=== PATIENT | female | born 1975 | race Caucasian/White ===

== ENCOUNTER → 2018-03-10 12:45 | Outpatient (CLI) | payer OTHER, SELFPAY ==
--- NOTE | 2018-03-10 12:47 | DI.US.S_ITS ---
PROCEDURE: US PELVIC COMPLETE INDICATIONS: vague pelvic discomfort TECHNIQUE: Real-time scanning was performed of the pelvic organs, with image documentation. Additional endovaginal scanning was necessary due to incomplete visualization of the adnexal and endometrial structures by transabdominal scanning. COMPARISON: [facility], US, PELVIS SONO TRANSVAGINAL (PNL), 04/20/2009, 8:09. FINDINGS: Transabdominal scanning: Limited scanning through the kidneys shows no hydronephrosis. No pathologic free abdominal or pelvic fluid. Endovaginal scanning: Uterus: The uterus is normal in size and measures 9.2 x 4.4 x 5.7 cm. No focal myometrial lesions are identified. Endometrial echo stripe is a homogeneous appearance and measures up to 11 mm in maximal combined thickness. There is no fluid seen within the endometrium. Small nabothian cysts are evident within the region of the cervix. Ovaries: The right ovary measures 2.4 x 3.0 x 4.1 cm, which is measuring within the upper limits of normal for size. A heterogeneous cyst is identified involving the right ovary that measures up to 2.0 cm in diameter and demonstrates peripheral vascularity. The left ovary is normal in size and measures 2.0 x 1.8 x 2.3 cm. No focal left ovarian abnormality is evident. IMPRESSION: 1. Possible collapsing right ovarian cyst. 2. Unremarkable uterus and left ovary. Dictated by: Jj Segura M.D. on 03/10/2018 at 12:44 Approved by: Jj Segura M.D. on 03/10/2018 at 12:46
== END ==
PROVIDERS: Family Provider Obstetrics & Gynecology; Visit Provider Physician Assistant
DX: R10.2 Pelvic and perineal pain (principal); N83.291 Other ovarian cyst, right side; N88.8 Other specified noninflammatory disorders of cervix uteri
CPT/HCPCS: 76830; 76856

== ENCOUNTER → 2018-06-25 12:15 | Outpatient (CLI) | payer OTHER, SELFPAY ==
--- NOTE | 2018-06-25 12:18 | DI.RAD.S_ITS ---
PROCEDURE: XR CERVICAL SPINE 2V OR 3V INDICATIONS: neck pain, dizziness TECHNIQUE: 3 view(s) of the cervical spine were acquired. COMPARISON: None. FINDINGS: Bones: No fractures or dislocations to the T1 level. The lateral masses of C1 appear intact on the odontoid view. No suspicious bony lesions. Note is made of a mild degree of degenerative disc disease at C4-5 and a moderately severe degree of such degeneration at C5-6. Moderate C6-7 degenerative disc height reduction also is present, and in each of these levels there are small anterior and posterior projecting osteophytes most prominent at C5-6 and C6-7. Soft tissues: No prevertebral soft tissue swelling. IMPRESSION: Overall the degenerative disc disease along the mid and lower cervical spine is moderate in severity, without subluxation. MR scanning may be warranted to accurately assess for nerve root impingement and degree of spinal stenosis. Dictated by: Sherif Thapa M.D. on 06/25/2018 at 14:29 Approved by: Sherif Thapa M.D. on 06/25/2018 at 14:38
== END ==
PROVIDERS: Family Provider Obstetrics & Gynecology; PCP Family Medicine; Visit Provider Family Medicine
DX: M54.2 Cervicalgia (principal)
CPT/HCPCS: 72040

== ENCOUNTER → 2018-07-04 08:35 | Outpatient (CLI) | payer OTHER, SELFPAY ==
--- NOTE | 2018-07-04 08:37 | DI.MRI.S_ITS ---
PROCEDURE: MR CERVICAL SPINE WO CON INDICATIONS: neck pain, radiculopathy TECHNIQUE: Noncontrast sagittal T1 spin echo and T2 fast spin echo, sagittal STIR, foraminal oblique sagittal T2 fast spin echo, and axial gradient echo or T2 fast spin echo through the cervical spine. COMPARISON: None. FINDINGS: Image quality: Excellent. Alignment and Curvature: There is mild straightening of normal cervical lordosis. Bone Marrow: Marrow demonstrates normal overall signal. Spinal Cord: Visualized spinal cord has normal size and signal. No cerebellar tonsillar herniation. Paraspinous Soft Tissues: No paravertebral masses. Prevertebral soft tissues are normal in thickness. C2-C3: Mild central disc bulge is seen. No significant canal stenosis or neuroforaminal narrowing. C3-C4: Diffuse disc bulge and central disc herniation is seen with mild effacement of the thecal sac anteriorly. No significant neuroforaminal narrowing. C4-C5: Diffuse disc bulge and central disc herniation causing [id number] central canal stenosis, no significant neuroforaminal narrowing. C5-C6: The right base, slightly more right-sided disc herniation and anulus fibrosis tear causing moderate central canal stenosis and mild bilateral neuroforaminal narrowing. C6-C7: Mild broad-based disc bulge is seen with mild central canal stenosis, no significant neuroforaminal narrowing. C7-T1: Normal appearance. IMPRESSION: 1. Degenerative disc bulge swallow cervical spine with mild to moderate central canal stenosis most prominent at C5-6 level. Mild bilateral neuroforaminal narrowing is seen at C5-6 level. 2. No marrow edema. No compression fracture or spondylolisthesis. No abnormal cervical spinal cord signal. Dictated by: Bruce Li M.D. on 07/06/2018 at 9:08 Approved by: Bruce Li M.D. on 07/06/2018 at 9:13
== END ==
PROVIDERS: Family Provider Obstetrics & Gynecology; PCP Family Medicine; Visit Provider Family Medicine
DX: M50.11 Cervical disc disorder with radiculopathy, high cervical region (principal); M48.02 Spinal stenosis, cervical region
CPT/HCPCS: 72141

== ENCOUNTER → 2019-02-04 11:39 | Outpatient (CLI) | payer OTHER, SELFPAY ==
--- NOTE | 2019-02-04 11:41 | DI.RAD.S_ITS ---
PROCEDURE: XR FOOT LT MIN 3V INDICATIONS: foot trauma/ pain TECHNIQUE: 3 views of the foot were acquired. COMPARISON: None. FINDINGS: Bones: There is a minimally displaced oblique fracture of the third proximal phalangeal shaft. No suspicious bony lesions. Mild degenerative joint disease in multiple interphalangeal joints. Soft tissues: No tibiotalar joint effusion. Achilles tendon appears normal. IMPRESSION: Minimally displaced third proximal phalangeal shaft fracture. Dictated by: Amna Wolfe M.D. on 02/04/2019 at 16:04 Approved by: Amna Wolfe M.D. on 02/04/2019 at 16:06
== END ==
PROVIDERS: PCP Family Medicine; Visit Provider Hospitalist
DX: M19.072 Primary osteoarthritis, left ankle and foot (principal); S92.512A Displaced fracture of proximal phalanx of left lesser toe(s), initial encounter for closed fracture
CPT/HCPCS: 73630

== ENCOUNTER → 2019-02-22 07:37 | Outpatient (CLI) | payer OTHER, SELFPAY ==
[2019-02-22 08:33] LABS: Add Manual Diff / Slide Review NO; Basophils Absolute Auto 100 /uL (0-100); Basophils Percent Auto 1.6 % (0-2); Eosinophils Absolute Auto 100 /uL (0-450); Eosinophils Percent Auto 2.8 % (2-4); Hematocrit 38.9 % (36-46); Hemoglobin 13.5 g/dL (12.0-16.0); Lymphocytes Absolute Auto 1600 /uL (1100-4500); Lymphocytes Percent Auto 38.1 % (25-40); Mean Corpuscular HGB Conc 34.8 % (30-36); Mean Corpuscular Hemoglobin 32.7 PG (26-34); Monocytes Absolute Auto 300 /uL (0-900); Monocytes Percent Auto 7.5 % (3-14); Neutrophils Absolute Auto 2100 /uL (1500-7000); Platelet Count 289 X10^3/uL (150-400); Red Blood Cell Count 4.14 X10^6/uL (4.0-5.2); Red Cell Distribution Width 12.6 % (11.6-14.8); White Blood Cell Count 4.2 X10^3/uL (4.5-11.0)
[2019-02-22 09:06] LABS: Alanine Aminotransferase 25 IU/L (9-52); Albumin 4.3 g/dL (3.5-5.0); Albumin Globulin Ratio 1.4 (1.0-2.8); Alkaline Phosphatase 50 U/L (38-126); Aspartate Aminotransferase 35 IU/L (14-36); BUN Creatinine Ratio 16.7 (6-22); Bilirubin Total 0.5 mg/dL (0.2-1.3); Blood Urea Nitrogen 10 mg/dL (7-17); Calcium 9.4 mg/dL (8.4-10.2); Carbon Dioxide 24 mmol/L (22-32); Chloride 104 mmol/L (98-107); Cholesterol 155 mg/dL (140-199); Estimated Glomerular Filt Rate > 60.0 mL/min (>60); Glucose 89 mg/dL (70-100); HDL Cholesterol 52 mg/dL (40-60); HEMOLYSIS < 15 (0-50); LDL Cholesterol Calculated 88 mg/dL (<100); Sodium 138 mmol/L (137-145); Total Protein 7.3 g/dL (6.3-8.2); Triglycerides 75 mg/dL (35-150)
[2019-02-22 09:26] LABS: Free T3, Triiodothyronine Free 3.57 pg/mL (2.77-5.27); Free T4, Direct Thyroxine 1.28 ng/dL (0.78-2.19)
[2019-02-22 09:36] LABS: Ferritin 48.4 ng/mL (6.27-137)
[2019-02-22 09:40] LABS: Thyroid Stimulating Hormone 1.56 uIU/mL (0.47-4.68)
[2019-02-24 14:40] LABS: Thyroid Peroxidase Antibodies 1 IU/mL (< 9)
== END ==
PROVIDERS: Family Provider Family Medicine; PCP Family Medicine; Visit Provider Naturopath
DX: Z00.00 Encounter for general adult medical examination without abnormal findings (principal); E06.3 Autoimmune thyroiditis
CPT/HCPCS: 36415; 80053; 80061; 82728; 84439; 84443; 84481; 85025; 86376

== ENCOUNTER → 2019-07-29 12:26 | Outpatient (CLI) | payer OTHER, SELFPAY ==
--- NOTE | 2019-07-29 12:32 | DI.MG.S_ITS ---
BILATERAL DIGITAL SCREENING MAMMOGRAM 3D/2D WITH CAD: 07/29/2019 CLINICAL: Baseline exam. Routine screening. No prior exams were available for comparison. The tissue of both breasts is heterogeneously dense. This may lower the sensitivity of mammography. Current study was also evaluated with a Computer Aided Detection (CAD) system. No significant masses, calcifications, or other findings are seen in either breast. IMPRESSION: NEGATIVE There is no mammographic evidence of malignancy. A 1 year screening mammogram is recommended. This exam was interpreted at Station ID: [id number]. NOTE: For mammograms, a report in lay terms will be sent to the patient. Approximately 15% of breast malignancies will not be visualized mammographically. In the management of a palpable breast mass, a negative mammogram must not discourage biopsy of a clinically suspicious lesion. Electronically Signed By: Humble jimenes/racheal:07/29/2019 15:49:57 letter sent: Normal Exam ACR BI-RADS Category 1: Negative 3341F
== END ==
PROVIDERS: Family Provider Family Medicine; Referring Provider Naturopath; Visit Provider Naturopath
DX: Z12.31 Encounter for screening mammogram for malignant neoplasm of breast (principal)
CPT/HCPCS: 77063; 77067

== ENCOUNTER → 2020-12-01 09:59 | Outpatient (CLI) | payer OTHER, SELFPAY ==
[2020-12-01 10:18] LABS: Add Manual Diff / Slide Review NO; Basophils Absolute Auto 100 /uL (0-100); Basophils Percent Auto 1.6 % (0-2); Eosinophils Absolute Auto 100 /uL (0-450); Eosinophils Percent Auto 2.6 % (2-4); Hematocrit 38.6 % (36-46); Hemoglobin 13.1 g/dL (12.0-16.0); Lymphocytes Absolute Auto 1500 /uL (1100-4500); Lymphocytes Percent Auto 37.3 % (25-40); Mean Corpuscular HGB Conc 33.9 % (30-36); Mean Corpuscular Hemoglobin 32.1 PG (26-34); Mean Corpuscular Volume 94.8 fL (80-100); Monocytes Absolute Auto 400 /uL (0-900); Monocytes Percent Auto 10.2 % (3-14); Neutrophils Absolute Auto 2000 /uL (1500-7000); Neutrophils Percent Auto 48.3 % (50-75); Platelet Count 274 X10^3/uL (150-400); Red Blood Cell Count 4.07 X10^6/uL (4.0-5.2); Red Cell Distribution Width 13.8 % (11.6-14.8); White Blood Cell Count 4.1 X10^3/uL (4.5-11.0)
[2020-12-01 10:39] LABS: Alanine Aminotransferase 29 IU/L (<35); Albumin 4.2 g/dL (3.5-5.0); Albumin Globulin Ratio 1.4 (1.0-2.8); Alkaline Phosphatase 41 U/L (38-126); Aspartate Aminotransferase 33 IU/L (14-36); Bilirubin Total 0.3 mg/dL (0.2-1.3); Blood Urea Nitrogen 11 mg/dL (7-17); Calcium 9.3 mg/dL (8.4-10.2); Carbon Dioxide 25 mmol/L (22-32); Chloride 106 mmol/L (98-107); Cholesterol 143 mg/dL (140-199); Estimated Glomerular Filt Rate > 60.0 mL/min (>60); Globulin 2.9 g/dL (1.7-4.1); Glucose 105 mg/dL (70-100); HDL Cholesterol 55 mg/dL (40-60); HEMOLYSIS < 15 (0-50); LDL Cholesterol Calculated 80 mg/dL (<100); Potassium 4.4 mmol/L (3.4-5.1); Sodium 138 mmol/L (137-145); Total Protein 7.1 g/dL (6.3-8.2); Triglycerides 42 mg/dL (35-150)
[2020-12-01 11:40] LABS: HIV 1 & 2 Ab/Ag 4th Gen Combo NEGATIVE (NEGATIVE)
[2020-12-02 12:09] LABS: RPR Screen Non Reactive (Non Reactive)
== END ==
PROVIDERS: Family Provider Family Medicine; PCP Naturopath; Referring Provider Naturopath; Visit Provider Naturopath
DX: Z00.00 Encounter for general adult medical examination without abnormal findings (principal); Z11.4 Encounter for screening for human immunodeficiency virus [HIV]; Z11.3 Encounter for screening for infections with a predominantly sexual mode of transmission
CPT/HCPCS: 36415; 80053; 80061; 85025; 86592; 87389

== ENCOUNTER → 2020-12-12 14:23 | Outpatient (CLI) | payer OTHER, SELFPAY ==
--- NOTE | 2020-12-12 14:24 | DI.MG.S_ITS ---
BILATERAL DIGITAL SCREENING MAMMOGRAM 3D/2D WITH CAD: 12/12/2020 CLINICAL: Routine screening. Comparison is made to exam dated: 07/29/2019 [facility]. The tissue of both breasts is heterogeneously dense. This may lower the sensitivity of mammography. Current study was also evaluated with a Computer Aided Detection (CAD) system. No significant masses, calcifications, or other findings are seen in either breast. There has been no significant interval change. IMPRESSION: NEGATIVE There is no mammographic evidence of malignancy. A 1 year screening mammogram is recommended. This exam was interpreted at Station ID: [id number]. NOTE: For mammograms, a report in lay terms will be sent to the patient. Approximately 15% of breast malignancies will not be visualized mammographically. In the management of a palpable breast mass, a negative mammogram must not discourage biopsy of a clinically suspicious lesion. Electronically Signed By: Parminder tello/racheal:12/12/2020 16:05:24 letter sent: Normal Exam ACR BI-RADS Category 1: Negative 3341F
== END ==
PROVIDERS: Family Provider Family Medicine; PCP Naturopath; Referring Provider Naturopath; Visit Provider Naturopath
DX: Z12.31 Encounter for screening mammogram for malignant neoplasm of breast (principal)
CPT/HCPCS: 77063; 77067

== ENCOUNTER → 2021-08-24 12:09 | Outpatient (CLI) | payer OTHER, SELFPAY ==
[2021-08-24 13:10] LABS: Appearance Urine UA CLEAR; Bilirubin Urine UA NEGATIVE (NEGATIVE); Color Urine UA YELLOW; Glucose Urine UA NEGATIVE (Negative); Ketones Urine UA NEGATIVE (NEGATIVE); Leukocyte Esterase Urine UA NEGATIVE (NEGATIVE); Nitrite Urine UA NEGATIVE (Negative); Occult Blood Urine UA NEGATIVE (Negative); Protein Urine UA NEGATIVE (Negative); Specific Gravity Urine UA <=1.005 (1.000-1.035); Urobilinogen Urine UA 0.2 E.U./dL (0.2)
[2021-08-24 13:42] LABS: HIV 1 & 2 Ab/Ag 4th Gen Combo NEGATIVE (NEGATIVE)
[2021-08-24 13:43] LABS: Bacteria Urine Occasional (0-1); Culture Indicated Urine Cult Not Indicated; RBC Urine 0-1/HPF (0-5/HPF); WBC Urine 0-1/HPF (0-5/HPF); pH Urine UA 6.5 (4.5-8.0)
[2021-08-24 14:38] LABS: Urine N gonorrhoeae NOT DETECTED
[2021-08-24 14:58] LABS: Urine Chlamydia NOT DETECTED
[2021-08-25 04:08] LABS: RPR Screen Non Reactive (Non Reactive)
== END ==
PROVIDERS: Family Provider Family Medicine; PCP Naturopath; Referring Provider Family Medicine; Visit Provider Family Medicine
DX: Z70.9 Sex counseling, unspecified (principal); Z11.3 Encounter for screening for infections with a predominantly sexual mode of transmission; Z20.828 Contact with and (suspected) exposure to other viral communicable diseases; R30.0 Dysuria
CPT/HCPCS: 36415; 81001; 86592; 87389; 87491; 87591

== ENCOUNTER → 2021-12-21 07:31 | Outpatient (CLI) | payer OTHER, SELFPAY ==
--- NOTE | 2021-12-21 | DI.MG.S_ITS ---
BILATERAL DIGITAL SCREENING MAMMOGRAM 3D/2D WITH CAD: 12/21/2021 CLINICAL: Routine screening. Comparison is made to exams dated: 12/12/2020 mammogram and 07/29/2019 mammogram - [facility]. The tissue of both breasts is heterogeneously dense. This may lower the sensitivity of mammography. Current study was also evaluated with a Computer Aided Detection (CAD) system. No significant masses, calcifications, or other findings are seen in either breast. There has been no significant interval change. IMPRESSION: NEGATIVE There is no mammographic evidence of malignancy. A 1 year screening mammogram is recommended. This exam was interpreted at Station ID: [id number]. NOTE: For mammograms, a report in lay terms will be sent to the patient. Approximately 15% of breast malignancies will not be visualized mammographically. In the management of a palpable breast mass, a negative mammogram must not discourage biopsy of a clinically suspicious lesion. Electronically Signed By: Jackie guzman/racheal:12/21/2021 14:26:05 letter sent: Normal Exam ACR BI-RADS Category 1: Negative 3341F
[2021-12-21 08:25] LABS: Appearance Urine UA CLEAR; Bilirubin Urine UA NEGATIVE (NEGATIVE); Color Urine UA YELLOW; Glucose Urine UA NEGATIVE (Negative); Ketones Urine UA NEGATIVE (NEGATIVE); Leukocyte Esterase Urine UA NEGATIVE (NEGATIVE); Nitrite Urine UA NEGATIVE (Negative); Occult Blood Urine UA NEGATIVE (Negative); Protein Urine UA NEGATIVE (Negative); Urobilinogen Urine UA 0.2 E.U./dL (0.2)
[2021-12-21 09:20] LABS: Add Manual Diff / Slide Review NO; Basophils Absolute Auto 0 /uL (0-100); Basophils Percent Auto 1.1 % (0-2); Eosinophils Absolute Auto 100 /uL (0-450); Eosinophils Percent Auto 2.1 % (2-4); Hematocrit 38.4 % (36-46); Hemoglobin 13.4 g/dL (12.0-16.0); Lymphocytes Absolute Auto 1700 /uL (1100-4500); Lymphocytes Percent Auto 35.6 % (25-40); Mean Corpuscular HGB Conc 34.8 % (30-36); Mean Corpuscular Hemoglobin 32.8 PG (26-34); Mean Corpuscular Volume 94.1 fL (80-100); Monocytes Absolute Auto 300 /uL (0-900); Monocytes Percent Auto 7.3 % (3-14); Neutrophils Absolute Auto 2500 /uL (1500-7000); Neutrophils Percent Auto 53.9 % (50-75); Platelet Count 314 X10^3/uL (150-400); Red Blood Cell Count 4.08 X10^6/uL (4.0-5.2); Red Cell Distribution Width 13.1 % (11.6-14.8); White Blood Cell Count 4.6 X10^3/uL (4.5-11.0)
[2021-12-21 09:22] LABS: Bacteria Urine None Seen; Culture Indicated Urine Cult Not Indicated; RBC Urine None Seen (0-5/HPF); Squamous Epithelial Cell Urine None Seen (0-5/HPF); WBC Urine None Seen (0-5/HPF)
[2021-12-21 09:39] LABS: Alanine Aminotransferase 16 IU/L (<35); Albumin 4.6 g/dL (3.5-5.0); Albumin Globulin Ratio 1.5 (1.0-2.8); Alkaline Phosphatase 44 U/L (38-126); Aspartate Aminotransferase 28 IU/L (14-36); BUN Creatinine Ratio 17.1 (6-22); Bilirubin Total 0.5 mg/dL (0.2-1.3); Blood Urea Nitrogen 13 mg/dL (7-17); Calcium 8.8 mg/dL (8.4-10.2); Carbon Dioxide 27 mmol/L (22-32); Chloride 103 mmol/L (98-107); Cholesterol 194 mg/dL (140-199); Estimated Glomerular Filt Rate > 60 mL/min (>60); Glucose 87 mg/dL (70-100); HDL Cholesterol 64 mg/dL (40-60); HEMOLYSIS < 15 (0-50); LDL Cholesterol Calculated 118 mg/dL (<100); Sodium 137 mmol/L (137-145); Total Protein 7.6 g/dL (6.3-8.2); Triglycerides 58 mg/dL (35-150)
[2021-12-21 10:04] LABS: Thyroid Stimulating Hormone 1.66 uIU/mL (0.47-4.68)
[2021-12-21 10:33] LABS: HIV 1 & 2 Ab/Ag 4th Gen Combo NEGATIVE (NEGATIVE)
[2021-12-22 07:24] LABS: RPR Screen Non Reactive (Non Reactive)
== END ==
PROVIDERS: Family Provider Family Medicine; PCP Naturopath; Referring Provider Naturopath; Visit Provider Naturopath
DX: Z12.31 Encounter for screening mammogram for malignant neoplasm of breast (principal); Z00.00 Encounter for general adult medical examination without abnormal findings; Z11.3 Encounter for screening for infections with a predominantly sexual mode of transmission
CPT/HCPCS: 36415; 77063; 77067; 80053; 80061; 81001; 84443; 85025; 86592; 87389

== ENCOUNTER → 2022-06-02 12:39 | Outpatient (CLI) | payer OTHER, SELFPAY ==
--- NOTE | 2022-06-02 12:41 | DI.RAD.S_ITS ---
PROCEDURE: XR FOREARM RT 2V INDICATIONS: Right wrist injury TECHNIQUE: 2 views of the forearm were acquired. COMPARISON: None. FINDINGS: Bones: No fractures or dislocations. No suspicious bony lesions. Soft tissues: No suspicious soft tissue calcifications or masses. IMPRESSION: Unremarkable right forearm radiographs Approved by: Juvencio Calzada M.D. on 06/02/2022 at 13:06
--- NOTE | 2022-06-02 12:41 | DI.RAD.S_ITS ---
PROCEDURE: XR WRIST RT MIN 3V INDICATIONS: Right wrist injury TECHNIQUE: 4 views of the wrist were acquired. COMPARISON: None. FINDINGS: Bones: No fractures or dislocations. No suspicious bony lesions. Scaphoid view: Unremarkable Soft tissues: No suspicious soft tissue calcifications. IMPRESSION: Unremarkable right wrist radiographs Approved by: Juvencio Calzada M.D. on 06/02/2022 at 13:09
== END ==
PROVIDERS: Family Provider Family Medicine; PCP Naturopath; Referring Provider Nurse Practitioner Family; Visit Provider Nurse Practitioner Family
DX: S69.91XA Unspecified injury of right wrist, hand and finger(s), initial encounter (principal); X58.XXXA Exposure to other specified factors, initial encounter
CPT/HCPCS: 73090; 73110

== ENCOUNTER → 2023-01-06 14:22 | Outpatient (CLI) | payer OTHER, SELFPAY ==
--- NOTE | 2023-01-06 | DI.MG.S_ITS ---
BILATERAL DIGITAL SCREENING MAMMOGRAM 3D/2D WITH CAD: 01/06/2023 CLINICAL: Routine screening. Comparison is made to exams dated: 12/21/2021 mammogram, 12/12/2020 mammogram, and 07/29/2019 mammogram - [facility]. Both breasts are heterogeneously dense, which may obscure small masses (category c / 51-75% glandular tissue). Current study was also evaluated with a Computer Aided Detection (CAD) system. No significant masses, calcifications, or other findings are seen in either breast. There has been no significant interval change. IMPRESSION: NEGATIVE There is no mammographic evidence of malignancy. A 1 year screening mammogram is recommended. Based on the Tyrer Cuzick model (a risk assessment model) the patient's lifetime risk is 15.2% and her 10 year risk is 3.0%. According to the ACR, ACS, and NCCN guidelines, an annual breast MRI exam along with mammogram is recommended if the patient's lifetime risk is 20% or greater. This exam was interpreted at Station ID: [id number]. NOTE: For mammograms, a report in lay terms will be sent to the patient. Approximately 15% of breast malignancies will not be visualized mammographically. In the management of a palpable breast mass, a negative mammogram must not discourage biopsy of a clinically suspicious lesion. Electronically Signed By: Jackie guzman/racheal:01/06/2023 15:05:48 letter sent: Normal Exam ACR BI-RADS Category 1: Negative 3341F
== END ==
PROVIDERS: Family Provider Family Medicine; PCP Naturopath; Referring Provider Naturopath; Visit Provider Naturopath
DX: Z12.31 Encounter for screening mammogram for malignant neoplasm of breast (principal)
CPT/HCPCS: 77063; 77067

== ENCOUNTER → 2024-01-17 08:53 | Outpatient (CLI) | payer OTHER, SELFPAY ==
--- NOTE | 2024-01-17 08:55 | DI.MG.S_ITS ---
BILATERAL DIGITAL SCREENING MAMMOGRAM 3D/2D WITH CAD: 01/17/2024 CLINICAL: Routine screening. Comparison is made to exams dated: 01/06/2023 mammogram, 12/21/2021 mammogram, and 12/12/2020 mammogram - [facility]. Both breasts are heterogeneously dense, which may obscure small masses (category c / 51-75% glandular tissue). Current study was also evaluated with a Computer Aided Detection (CAD) system. There is an oval equal density focal asymmetry in the left breast at 5 o'clock middle depth. This is more prominent and increased in size. No other significant masses, calcifications, or other findings are seen in either breast. IMPRESSION: INCOMPLETE: NEEDS ADDITIONAL IMAGING EVALUATION The oval equal density focal asymmetry in the left breast resembles a cyst or a lymph node and is indeterminate. Additional views with possible ultrasound are recommended. Based on the Tyrer Cuzick model (a risk assessment model) the patient's lifetime risk is 15.1% and her 10 year risk is 3.1%. According to the ACR, ACS, and NCCN guidelines, an annual breast MRI exam along with mammogram is recommended if the patient's lifetime risk is 20% or greater. This exam was interpreted at Station ID: [id number]. NOTE: For mammograms, a report in lay terms will be sent to the patient. Approximately 15% of breast malignancies will not be visualized mammographically. In the management of a palpable breast mass, a negative mammogram must not discourage biopsy of a clinically suspicious lesion. Electronically Signed By: Parminder tello/racheal:01/18/2024 21:03:39 letter sent: Additional Imaging Needed ACR BI-RADS Category 0: Incomplete 3340F
[2024-01-17 09:56] LABS: Add Manual Diff / Slide Review NO; Basophils Absolute Auto 100 /uL (0-100); Basophils Percent Auto 1.3 % (0-2); Eosinophils Absolute Auto 100 /uL (0-450); Eosinophils Percent Auto 2.8 % (2-4); Hematocrit 39.6 % (36-46); Hemoglobin 13.3 g/dL (12.0-16.0); Lymphocytes Absolute Auto 1700 /uL (1100-4500); Lymphocytes Percent Auto 40.2 % (25-40); Mean Corpuscular HGB Conc 33.5 % (30-36); Mean Corpuscular Hemoglobin 31.3 PG (26-34); Mean Corpuscular Volume 93.3 fL (80-100); Monocytes Absolute Auto 300 /uL (0-900); Monocytes Percent Auto 7.1 % (3-14); Neutrophils Absolute Auto 2000 /uL (1500-7000); Neutrophils Percent Auto 48.6 % (50-75); Platelet Count 289 X10^3/uL (150-400); Red Blood Cell Count 4.25 X10^6/uL (4.0-5.2); Red Cell Distribution Width 13.3 % (11.6-14.8); White Blood Cell Count 4.2 X10^3/uL (4.5-11.0)
[2024-01-17 10:14] LABS: Alanine Aminotransferase 23 IU/L (<35); Albumin 4.4 g/dL (3.5-5.0); Albumin Globulin Ratio 1.7 (1.0-2.8); Alkaline Phosphatase 47 U/L (38-126); Aspartate Aminotransferase 32 IU/L (14-36); BUN Creatinine Ratio 26.4 (6-22); Bilirubin Total 0.5 mg/dL (0.2-1.3); Blood Urea Nitrogen 19 mg/dL (7-17); Calcium 9.2 mg/dL (8.4-10.2); Carbon Dioxide 22 mmol/L (22-32); Chloride 106 mmol/L (98-107); Cholesterol 197 mg/dL (140-199); Estimated Glomerular Filt Rate > 60 mL/min (>60); Globulin 2.6 g/dL (1.7-4.1); Glucose 90 mg/dL (70-100); HDL Cholesterol 57 mg/dL (40-60); HEMOLYSIS < 15 (0-50); LDL Cholesterol Calculated 127 mg/dL (<100); Potassium 4.5 mmol/L (3.4-5.1); Sodium 136 mmol/L (137-145); Triglycerides 64 mg/dL (35-150)
[2024-01-17 10:48] LABS: Ferritin 47 ng/mL (6-137)
== END ==
LOC: MAMMO 08:54
PROVIDERS: Family Provider Family Medicine; PCP Naturopath; Referring Provider Naturopath; Visit Provider Naturopath
DX: Z12.31 Encounter for screening mammogram for malignant neoplasm of breast (principal); Z00.00 Encounter for general adult medical examination without abnormal findings; R92.333 Mammographic heterogeneous density, bilateral breasts; R53.83 Other fatigue
CPT/HCPCS: 36415; 77063; 77067; 80053; 80061; 82728; 85025

== ENCOUNTER → 2024-01-22 10:14 | Outpatient (CLI) | payer OTHER, SELFPAY ==
--- NOTE | 2024-01-22 10:16 | DI.MG.S_ITS ---
UNILATERAL LEFT DIGITAL DIAGNOSTIC MAMMOGRAM 3D/2D WITH ADDITIONAL VIEWS: 01/22/2024 CLINICAL: Additional evaluation requested from prior study. Comparison is made to exams dated: 01/17/2024 mammogram, 01/06/2023 mammogram, 12/21/2021 mammogram, and 12/12/2020 mammogram - [facility]. The left breast is heterogeneously dense, which may obscure small masses (category c / 51-75% glandular tissue). There is a 4 mm round low density asymmetry with an indistinct and circumscribed margin in the left breast at 6 o'clock middle depth. This is seen in additional views. No other significant masses or calcifications are seen in the breast. IMPRESSION: INCOMPLETE: NEEDS ADDITIONAL IMAGING EVALUATION The 4 mm round low density asymmetry in the left breast most likely is a cyst but remains indeterminate. An ultrasound is recommended. This was performed immediately following this exam. Based on the Tyrer Cuzick model (a risk assessment model) the patient's lifetime risk is 15.1% and her 10 year risk is 3.1%. According to the ACR, ACS, and NCCN guidelines, an annual breast MRI exam along with mammogram is recommended if the patient's lifetime risk is 20% or greater. This exam was interpreted at Station ID: [id number]. NOTE: For mammograms, a report in lay terms will be sent to the patient. Approximately 15% of breast malignancies will not be visualized mammographically. In the management of a palpable breast mass, a negative mammogram must not discourage biopsy of a clinically suspicious lesion. Electronically Signed By: Dionne wright/:01/22/2024 11:18:19 ACR BI-RADS Category 0: Incomplete 3340F
--- NOTE | 2024-01-22 10:16 | DI.US.S_ITS ---
LIMITED ULTRASOUND OF LEFT BREAST: 01/22/2024 CLINICAL: Patient returns today to evaluate a focal asymmetry in the left breast. Comparison is made to exams dated: 01/22/2024 mammogram, 01/17/2024 mammogram, 01/06/2023 mammogram, 12/21/2021 mammogram, 12/12/2020 mammogram, and 07/29/2019 mammogram - . Color flow and real-time ultrasound of the left breast 5 o'clock region were performed. Camacho scale images of the real-time examination were reviewed. There is a 4 mm round cyst in the left breast at 5 o'clock anterior depth. This round cyst is anechoic with a well-defined boundary and posterior acoustic enhancement. This correlates with mammography findings. Color flow imaging demonstrates that there is no vascularity present. IMPRESSION: BENIGN There is no sonographic evidence of malignancy. The 4 mm round cyst in the left breast corresponds to the mammogram finding, is consistent with a simple cyst and is benign. Return to annual mammogram screening schedule is recommended. Findings and recommendations were conveyed to the patient at time of exam. This exam was interpreted at Station ID: [id number]. Electronically Signed By: Dionne wright/:01/22/2024 11:41:09 letter sent: Normal Exam Ultrasound BI-RADS: 2 Benign
== END ==
PROVIDERS: Family Provider Family Medicine; PCP Naturopath; Referring Provider Naturopath; Visit Provider Naturopath
DX: R92.8 Other abnormal and inconclusive findings on diagnostic imaging of breast (principal); R92.322 Mammographic fibroglandular density, left breast; N60.02 Solitary cyst of left breast
CPT/HCPCS: 76642; 77065; G0279

== ENCOUNTER → 2024-12-06 17:06 | Outpatient (CLI) | payer OTHER, SELFPAY | PROVIDERS: PCP Naturopath; Visit Provider Chiropractor | DX: R30.0 Dysuria (principal) | CPT/HCPCS: 87086 ==

== ENCOUNTER → 2024-12-13 07:37 | Outpatient (CLI) | payer OTHER, SELFPAY ==
[2024-12-13 08:28] LABS: Add Manual Diff / Slide Review NO; Hematocrit 39.5 % (36-46); Hemoglobin 13.9 g/dL (12.0-16.0); Lymphocytes Absolute Auto 2000 /uL (1100-4500); Mean Corpuscular HGB Conc 35.2 % (30-36); Mean Corpuscular Hemoglobin 32.2 PG (26-34); Mean Corpuscular Volume 91.6 fL (80-100); Platelet Count 282 X10^3/uL (150-400)
[2024-12-13 08:34] LABS: Alanine Aminotransferase 21 IU/L (<35); Albumin 4.5 g/dL (3.5-5.0); Albumin Globulin Ratio 1.7 (1.0-2.8); Alkaline Phosphatase 46 U/L (38-126); Blood Urea Nitrogen 13 mg/dL (7-17); Calcium 9.5 mg/dL (8.4-10.2); Carbon Dioxide 24 mmol/L (22-32); Chloride 106 mmol/L (98-107); Cholesterol 190 mg/dL (140-199); Estimated Glomerular Filt Rate > 60 mL/min (>60); Globulin 2.7 g/dL (1.7-4.1); Glucose 99 mg/dL (70-99); HDL Cholesterol 57 mg/dL (40-60); HEMOLYSIS < 15 (0-50); Potassium 4.3 mmol/L (3.4-5.1); Sodium 138 mmol/L (137-145); Total Protein 7.2 g/dL (6.3-8.2); Triglycerides 71 mg/dL (35-150)
[2024-12-13 08:46] LABS: Free T3, Triiodothyronine Free 4.06 pg/mL (2.77-5.27); Free T4, Direct Thyroxine 1.27 ng/dL (0.78-2.19)
[2024-12-13 08:59] LABS: Thyroid Stimulating Hormone 2.79 uIU/mL (0.47-4.68)
== END ==
PROVIDERS: PCP Naturopath; Referring Provider Naturopath; Visit Provider Naturopath
DX: Z00.00 Encounter for general adult medical examination without abnormal findings (principal); E78.00 Pure hypercholesterolemia, unspecified; R53.83 Other fatigue
CPT/HCPCS: 36415; 80053; 80061; 82172; 83695; 84439; 84443; 84481; 85025; 86376

== ENCOUNTER → 2025-05-25 13:58 | Outpatient (CLI) | payer OTHER, SELFPAY ==
--- NOTE | 2025-05-25 13:59 | DI.RAD.S_ITS ---
PROCEDURE: XR HAND RT MIN 3V INDICATIONS: Pain over proximal pointer and middle finger TECHNIQUE: 3 views of the hand acquired. COMPARISON: None. FINDINGS: Bones: No acute fractures or dislocations. Carpal bones are normally aligned. No suspicious bony lesions. Minimal arthritic changes. Soft tissues: No suspicious soft tissue calcifications. IMPRESSION: No acute osseous abnormality. If there is continued clinical concern or persistent symptoms, repeat radiographs or cross-sectional imaging (e.g. CT, MRI) may be helpful for further evaluation. Approved by: Gui Snyder M.D. on 05/25/2025 at 14:16
== END ==
PROVIDERS: PCP Naturopath; Referring Provider Nurse Practitioner Family; Visit Provider Nurse Practitioner Family
DX: M79.89 Other specified soft tissue disorders (principal)
CPT/HCPCS: 73130